=== PATIENT | female | born 2000 | race Caucasian/White ===

== ENCOUNTER → 2023-04-02 | Outpatient (CLI) | payer BC ==
--- NOTE | 2023-04-02 16:38 | US ---
EXAMINATION TYPE: US pelvic complete DATE OF EXAM: 04/02/2023 COMPARISON: NONE CLINICAL INDICATION: Female, 22 years old with history of R10.9 UNSPECIFIED ABDOMINAL PAIN; pain LLQ hx of cyst. TECHNIQUE: Transabdominal (TA EXAM MEASUREMENTS: Uterus: 7.3 x 3.1 x 4.6 cm Endometrial Stripe: .5 cm Left Ovary: 2.4 x 2.1 x 2.4 cm 1. Uterus: Anteverted wnl 2. Endometrium: wnl 3. Right Ovary: Obscured by overlying bowel gas 4. Left Ovary: follicles seen. 5. Bilateral Adnexa: wnl 6. Posterior cul-de-sac: wnl IMPRESSION: 1. No evidence for acute process. 2. No which are within normal limits for thickness.
== END | disposition home or self-care (01) ==
LOC: RADUSWWP 16:12
PROVIDERS: ATTEND Family Medicine
DX: R10.32 Left lower quadrant pain (principal)
CPT/HCPCS: 76856